=== PATIENT | female | born 1940 | race Caucasian/White ===

== ENCOUNTER → 2018-03-03 09:24 | Outpatient (CLI) | payer MEDICARE, SELFPAY ==
--- NOTE | 2018-03-03 09:31 | US_ITS ---
US transvaginal Ordering Physician: Brunilda Syed MD Patient Age: 78 years: Female HISTORY: ITS.REASON: POST MENOPAUSAL BLEEDING Knee postmenopausal bleeding 3 days TECHNIQUE: Transvaginal pelvic ultrasound COMPARISON :None : FINDINGS : Uterus is retroverted. The uterus is generous in girth & enlarged for this age age patient measuring 7.7 cm x 4.6 cm AP x 5.8 cm wide. Inhomogeneous debris-filled fluid collection is seen at the superior aspect of the endometrium. Appears to have a thin margin/rim This measures up to 2.5 cm sagittal length x 3 nearly cm transverse. &, 2 cm AP. This masslike fluid collection tapers as it extends inferiorly along the endometrial cavity. This abnormality results thickening of the superior endometrium up to nearly. 2 cm. Warrants/requires [employer] consult. This could be an endometrial lesion/neoplasm , or could be degenerating submucosal fibroid, extending down from the superior endometrial cavity.. Possible central necrosis or liquefication catheter for this inhomogeneous fluid like hypoechoic appearance The endometrial stripe tapers to to more normal thickness at lower uterine segment. However superiorly endometrial cavity measures up to 2 cm AP at the level of the lesion described above . Question a few tiny nabothian cyst along cervical canal as well. No fluid in cul-de-sac. The ovaries appear normal in size & appearance. Right ovary 1.5 cm x 1.25 cm x 0.75 cm. Left ovary 1.1 x 0.9 x 1 cm . IMPRESSION: 1. The focal hypoechoic debris-filled fluid collection/mass at the superior aspect of the endometrium-as discussed in text. Warrants/requires [employer]ER consult and follow-up.. 2. Ovaries appear normal bilaterally.
== END ==
PROVIDERS: PCP Family Medicine; Visit Provider Emergency Medicine
DX: N95.0 Postmenopausal bleeding (principal)
CPT/HCPCS: 76830

== ENCOUNTER → 2018-05-16 09:33 | Outpatient (CLI) | payer MEDICARE, SELFPAY ==
--- NOTE | 2018-05-16 09:37 | MM_ITS ---
MM Dig SC mamm implant BI CAD CAD Screening . ORDERING PHYSICIAN: Brunilda Syed MD PATIENT AGE: 78 years COMPARISON: November 2016 bilateral. December 2016 left mammogram and left breast ultrasound. Also May 2012 bilateral mammogram . TECHNIQUE: Janina technique utilized. CC & MLO images were obtained of the breast tissue overlying implant, as well as a second set of images including the breast implant. Mammography is inherently limited due to the implants is a could obscure areas of breast R2 CAD reviewed. FINDINGS: Moderately dense breast pattern bilaterally. Overlying the implants, which can partially obscure portions of the breast Moderately dense breast tissue. Areas of minimal density on one view dissipate on another compatible with fibroglandular tissue RIGHT MAMMOGRAM. No suspicious findings. No new areas of concern. stable appearance with no new findings. Follow-up in one year recommended LEFT MAMMOGRAM: No new suspicious features.. Stable minimal densities and nodularity medial breast similar to previous study. . . We again see some minimal nodularity towards the medial breast but this is unchanged since November 2016 exam and actually was somewhat evident on the May 2012 study. Also the December 2016 ultrasound showed small cyst in this region to account for at least one of these densities with no other suspicious findings otherwise on that prior ultrasound. The fibroglandular tissue at the lateral left breast dissipates on multiple views with no persistent of concern Given the lack of definitive change of the above features, follow-up mammogram not over one year would be adequate. .. --------IMPRESSION: No suspicious nor significant appearing new findings. Left breast minimal nodularity medially appears similar, with no significant change since since 2016. . Bilateral follow-up in one year- should be emphasized and encouraged ( Bilateral breast implants & moderately dense breast tissue, decrease sensitivity of mammography.) BI-RADS Category: 2 Benign Finding(s) RECOMMENDED FOLLOW-UP: 1YR - 1 YEAR FOLLOW-UP (A letter has been sent to the patient regarding results of the study.)
--- NOTE | 2018-05-16 09:38 | XR_ITS ---
XR DEXA axial skeleton HISTORY: ITS.REASON: OSTEOPENIA ORDERING PHYSICIAN: Brunilda Syed MD PATIENT AGE: 78 years COMPARISON: 11/25/2016 FINDINGS: The BMD measured at the left femoral neck is 0.716 g/cm squared with a T score of -2.3. This is considered Osteopenic according to the World Health Organization criteria. Fracture risk is Moderate. Treatment is advised. The L1 L4 density has a T score of -0.5 and has decreased by 1.2%. The mean hip density has decreased 4%. IMPRESSION: Osteopenia with moderate fracture risk. Treatment is advised. Suggest follow-up exam May 2020
== END ==
PROVIDERS: PCP Emergency Medicine; Visit Provider Emergency Medicine
DX: Z12.31 Encounter for screening mammogram for malignant neoplasm of breast (principal); M81.0 Age-related osteoporosis without current pathological fracture
CPT/HCPCS: 77067; 77080

== ENCOUNTER → 2018-09-13 14:39 | Outpatient (CLI) | payer MEDICARE, SELFPAY ==
--- NOTE | 2018-09-13 14:49 | US_ITS ---
US transvaginal HISTORY: ITS.REASON: US T/V- Endometrial Hyperplasia ORDERING PHYSICIAN: Marina Medina MD PATIENT AGE: 78 years Comparison: None FINDINGS: Uterus is 6 x 4 x 4 cm and retroverted. There is some fluid present within the endometrial canal. The adnexa are unremarkable. No cul-de-sac fluid evident. IMPRESSION: Small amount of fluid within the endometrial canal
== END ==
PROVIDERS: PCP Emergency Medicine; Visit Provider Obstetrics & Gynecology
DX: N85.01 Benign endometrial hyperplasia (principal)
CPT/HCPCS: 76830

== ENCOUNTER → 2019-11-16 15:57 | Outpatient (CLI) | payer MEDICARE, SELFPAY ==
[2019-11-16 18:07] LABS: Coronavirus 19 IgG Antibody Positive (Negative); Coronavirus 19 IgM Antibody Negative (Negative)
== END ==
PROVIDERS: Visit Provider Internal Medicine Gastroenterology
DX: Z01.818 Encounter for other preprocedural examination (principal); Z12.11 Encounter for screening for malignant neoplasm of colon
CPT/HCPCS: 36415; 86328

== ENCOUNTER 2019-11-19 11:17 | Day surgery (SDC) | payer MEDICARE, SELFPAY ==
[2019-11-14 10:54] VITALS: BMI 28.2
[2019-11-19] VITALS (7 sets, daily range): BP systolic 96–155; BP diastolic 48–79; PULSE 53–69; RESP 16–18; TEMP 36.6–36.7; O2SAT 97–100
--- NOTE | 2019-11-19 12:57 | HMH.ANESCL ---
[facility] Anesthesia Checklist - Patient Identification Patient Identification: Arm Band, Verbal (Name & ) - Structural Data Admitted From: Home Planned Operative Procedure/s: Colonoscopy Consent for Planned Operative Procedure(s) Verified: Yes Verified Documents: Surgical Consent, History and Physical - NPO Status Verified Time NPO: 00:00 - Chart Verification Results Verified: None - Additional verifications Anesthesia Reactions: No Hx Blood Transfusions: No Blood Transfusion Reaction: No - Airway Assessment C-Spine Mobility Assessed: Yes TMJ Mobility Assessed: Yes Dentition: Good Dentition - Neurological Assessment Level of Consciousness: Awake, Alert, Appropriate, Follows Commands Hx Seizures: No Numbness or tingling in extremities: No - Anesthesia Plan Anesthesia Risk discussed: Yes Anesthesia Plan: Verified ASA Class: II Anesthesia Type: MAC [facility] History I have reviewed the patient's past medical history: Yes Medical History: Reports:: Anxiety, Asthma, Cancer, Hypertension Denies:: Diabetes Mellitus Type 1, Diabetes Mellitus Type 2, Internal Pacemaker, MRSA, Seizures *Have you ever received a pneumonia vaccine?: Yes *Have you received a flu vaccine this season?: No Other Medical History: Reports: Hypothyroidism. Denies: Blood Transfusion Reaction Anesthesia experience/problems:: No prior complications Laterality Cases: Bilateral: Other (Breast augmentation) Other Surgeries: Yes: Dilation and Curettage, Thyroidectomy, Tubal Ligation. No: Pacemaker Amputation: No Fractures: No - *Social History Last grade of school completed: Advanced degree Smoking Status: Never smoker Alcohol Intake: never Substance Use Type: denies use *Occupational Status:: retired Housing: house Household Members: none *Travel in the last 8 weeks: None Family Hx:: Cancer
--- NOTE | 2019-11-19 13:59 | HMH.PROC ---
[facility] Procedure Note Procedure Note:: Colonoscopy Procedure Report: Colonoscopy with cold snare polypectomy Endoscopist: Ben Gallegos II, MD Referring physician: Milan Jefferson MD Date of Procedure: November 19, 2019 Equipment: Olympus 180 variable stiffness pediatric colonoscope Sedation: MAC sedation Indication: Mrs. Loredo is a 79-year-old female who is here for follow-up screening/surveillance colonoscopy. The patient does have a family history of colon cancer and a personal history of colon polyps. Both of her parents had colon cancer. Her mother was age 50 and her father was in his mid 50s. The patient has had 3 prior colonoscopies. The patient's colonoscopy in January 2004 revealed 2 polyps (tubular adenomas x2) which were removed. The patient's colonoscopy in February 2009 revealed 2 diminutive polyps (tubular adenomas x2) which were removed. Her last colonoscopy in 2013 revealed a single polyp (tubular adenoma x1) which was removed. She does get some occasional hemorrhoidal bleeding. She reports no abdominal pain, weight loss or change in her bowel habits. Procedure: Prior to the procedure, a history and physical exam was performed, and patient's medications and allergies were reviewed. The risks, benefits and alternatives of the sedation and procedure were discussed with the patient. All questions were answered and informed consent was obtained. The patient was brought to the procedure room. Patient identification and proposed procedure were verified by the physician and the nurse. The patient was placed in a left lateral decubitus position and the scope was passed under direct vision. Throughout the procedure, the patient's blood pressure, pulse, and oxygen saturations were monitored continuously. The colonoscopy was accomplished without difficulty. The patient tolerated the procedure well. Findings: On digital rectal examination there was normal rectal tone. There were no external hemorrhoids. The colonoscope was introduced through the anal canal to the rectum and advanced to the cecum. The ileocecal valve and appendiceal orifice were identified. The scope was advanced a short distance into the ileum which appeared grossly normal. The scope was then withdrawn into the colon. The cecum, ascending and transverse colon and mucosa were grossly normal. There was a diminutive 3 mm polyp in the transverse colon removed via cold snare polypectomy. There were scattered diverticuli throughout the descending and sigmoid colon (LEFT colon). The rectum itself was normal. Upon retroflexion within the rectum there were grade 2 internal hemorrhoids. The preparation was excellent throughout with [place] Preparation Score of 9. The cecal time was 12 minutes. Impression: 1. Diminutive transverse colon polyp 2. Left-sided diverticulosis 3. Grade 2 internal hemorrhoids Plan: I will follow-up the polyp histology and I am not convinced that the patient will require further preventive/surveillance colonoscopy. I will discuss the findings with the patient and family. I would encourage continuation of bulk fiber supplementation with Metamucil daily.
== END 2019-11-19 14:54 | disposition home or self-care (01) ==
LOC: OUTP 11:19
PROVIDERS: PCP Family Medicine; Visit Provider Internal Medicine Gastroenterology
PROC: 0DJD8ZZ Inspection of Lower Intestinal Tract, Via Natural or Artificial Opening Endoscopic (ICD-10-PCS; CPT 45378; principal; 2019-11-19 12:30)
DX: Z12.11 Encounter for screening for malignant neoplasm of colon (principal); Z80.0 Family history of malignant neoplasm of digestive organs; Z86.010 Personal history of colon polyps; K63.5 Polyp of colon; K57.30 Diverticulosis of large intestine without perforation or abscess without bleeding; K64.1 Second degree hemorrhoids; J45.909 Unspecified asthma, uncomplicated; F41.9 Anxiety disorder, unspecified; I10 Essential (primary) hypertension; E03.9 Hypothyroidism, unspecified; Z85.9 Personal history of malignant neoplasm, unspecified; Z79.899 Other long term (current) drug therapy
CPT/HCPCS: 45385; 88305

== ENCOUNTER → 2020-04-10 10:44 | Outpatient (POV) | payer MEDICARE, SELFPAY | PROVIDERS: Visit Provider Audiologist | DX: Z00.00 Encounter for general adult medical examination without abnormal findings (principal) ==

== ENCOUNTER 2020-04-25 11:06 | Emergency (ER) | payer MEDICARE, SELFPAY ==
[2020-04-25 11:06] VITALS: BP 169/92; PULSE 60; RESP 18; TEMP 37.3; O2SAT 95; BMI 28.4
--- NOTE | 2020-04-25 11:29 | XR_ITS ---
PROCEDURE: XR CHEST 2V CLINICAL HISTORY: soa COMPARISON: No exams were available for comparison FINDINGS: The cardiomediastinal silhouette and pulmonary vascularity are within normal limits. The lungs are clear without infiltrates, suspicious nodules, or pleural effusions. There is mild diffuse dextroscoliotic curvature of the mid and upper thoracic spine. There are degenerate changes in both shoulders with lateral downsloping acromion process of both shoulders suggesting predisposition to impingement syndrome. There is mild and likely non recent compression of 2 midthoracic vertebrae. No acute bony abnormalities. IMPRESSION: No acute findings. Dictated by: Dr. Roger Candelario MD 04/25/2020 11:53 Dr. Roger Candelario MD in [place] 04/25/2020 11:53
--- NOTE | 2020-04-25 11:32 | ECG_ITS ---
APPROVED REPORT Exam: Resting ECG HR:62 bpm ECG Measurements Heart Rate 62 AXES NC 146 P 64 QRSd 94 QRS -31 QT 412 T 46 QTc 418 Conclusion Normal sinus rhythm Left axis deviation Abnormal ECG Electronically signed by : Shankar Au, 04/25/2020 20:09:49
[2020-04-25 11:36] VITALS: BP 170/90; PULSE 76; RESP 18; O2SAT 96
--- NOTE | 2020-04-25 11:43 | HMH.EDGENADL ---
ED Disposition Clinical Impression: Essential hypertension Disposition: Home, Self-Care Condition on Discharge: Good Instructions: DI for High Blood Pressure Additional Instructions: Continue your current blood pressure medication. Continue to monitor your blood pressure at home, check it daily and record results. Follow-up with Dr. Jefferson in the office. Referrals: Dimas Jefferson MD [Primary Care Provider] - - Critical Care Critical Care Time: No Attestation: On 04/25/20, the high probability of a clinically significant, sudden or life threatening deterioration of the following system(s) required my full and direct attention, intervention and personal management. The time I documented below is in addition to time spent performing reported procedures but includes the following listed in this critical care notation. Medical Decision Making - Jakub Inquiry Pt receiving controlled substance: No Vital Signs: 04/25/20 11:06 04/25/20 11:36 04/25/20 12:06 Temperature 99.1 F Temperature Source Oral Pulse Rate [Left Radial] 60 76 63 Respiratory Rate 18 18 18 Blood Pressure [Right Arm] 169/92 H 170/90 H 192/88 H Blood Pressure Mean [Right Arm] 117 116 122 Blood Pressure Source [Right Arm] Automatic Cuff Automatic Cuff Automatic Cuff Blood Pressure Position [Right Arm] Sitting Supine Supine 02 Sat by Pulse Oximetry 95 96 98 Oxygen Delivery Method Room Air Room Air Room Air 04/25/20 12:30 Temperature Temperature Source Pulse Rate [Left Radial] 67 Respiratory Rate 18 Blood Pressure [Right Arm] 179/87 H Blood Pressure Mean [Right Arm] 117 Blood Pressure Source [Right Arm] Automatic Cuff Blood Pressure Position [Right Arm] Sitting 02 Sat by Pulse Oximetry 95 Oxygen Delivery Method Room Air - Lab Data Lab Results 04/25/20 12:01: WBC 6.8, RBC 4.49, Hgb 13.8, Hct 42.7, MCV 95.1, MCH 30.6, MCHC 32.2, RDW 12.4, Plt Count 334, MPV 7.2 L, Neut % (Auto) 62.0, Lymph % (Auto) 32.0, [place] % (Auto) 3.8, Eos % (Auto) 1.7, Baso % (Auto) 0.5, Neut # (Auto) 4.2, Lymph # (Auto) 2.2, [place] # (Auto) 0.3, Eos # (Auto) 0.1, Baso # (Auto) 0.0 04/25/20 12:01: Sodium 139, Potassium 4.0, Chloride 106, Carbon Dioxide 29, Anion Gap 8.0, BUN 14, Creatinine 0.80, Estimated Creat Clear 57, Estimated GFR 69, Est GFR ( Amer) 84, Glucose 100, Calcium 9.8, Total Bilirubin 0.8, AST 33, ALT 21, Alkaline Phosphatase 82, Total Protein 7.8, Albumin 4.4, Globulin 3.4 H, Albumin/Globulin Ratio 1.3, TSH 1.66 04/25/20 12:29: Urine Color Yellow, Urine Appearance Clear, Urine pH 6.5, Ur Specific [place] 1.020, Urine Protein Negative, Urine Glucose (UA) Negative, Urine Ketones Negative, Urine Blood Negative, Urine Nitrate Negative, Urine Bilirubin Negative, Urine Urobilinogen 0.2, Ur Leukocyte Esterase Negative Result diagrams: 04/25/20 12:01 04/25/20 12:01 Orders (Tests/Meds): ORDERS Category Date Time Status Urinalysis and Microscopic Stat Lab 04/25/20 12:29 Results - Radiology Data #1 Image(s): Chest Image Reviewed: Yes I have reviewed radiologist's interpretation PROCEDURE: XR CHEST 2V CLINICAL HISTORY: soa COMPARISON: No exams were available for comparison FINDINGS: The cardiomediastinal silhouette and pulmonary vascularity are within normal limits. The lungs are clear without infiltrates, suspicious nodules, or pleural effusions. There is mild diffuse dextroscoliotic curvature of the mid and upper thoracic spine. There are degenerate changes in both shoulders with lateral downsloping acromion process of both shoulders suggesting predisposition to impingement syndrome. There is mild and likely non recent compression of 2 midthoracic vertebrae. No acute bony abnormalities. IMPRESSION: No acute findings. Dictated by: Dr. Roger Candelario MD 04/25/2020 11:53 Dr. Roger Candelario MD in [place] 04/25/2020 11:53 - ECG Data Tracing #1 EKG interpreted by Hugo Berrios MD: [place]
[2020-04-25 12:06] VITALS: BP 192/88; PULSE 63; RESP 18; O2SAT 98
[2020-04-25 12:30] VITALS: BP 179/87; PULSE 67; RESP 18; O2SAT 95
[2020-04-25 12:31] LABS: Chloride 106 mmol/L (98-107); Sodium 139 mmol/L (136-145)
[2020-04-25 12:33] LABS: Blood Urea Nitrogen 14 mg/dl (7-17); Creatinine Clearance Estimated 57 mL/min (50-200); Estimated Glomerular Filt Rate 69 ml/min (>60); GFR (African American) 84 ML/MIN (>60)
[2020-04-25 12:34] LABS: Alanine Aminotransferase 21 U/L (12-78); Albumin Level 4.4 g/dl (3.5-5.0); Albumin/Globulin Ratio 1.3 (1.1-1.8); Alkaline Phosphatase 82 U/L (38-126); Aspartate Amino Transferase 33 U/L (14-36); Bilirubin,Total 0.8 mg/dl (0.2-1.3); Carbon Dioxide 29 mmol/L (22.0-30.0); Globulin 3.4 g/dL (1.3-3.2); Total Protein,Serum 7.8 g/dl (6.3-8.2)
[2020-04-25 12:35] LABS: Calcium 9.8 mg/dl (8.4-10.2); Glucose 100 mg/dl (74-100)
[2020-04-25 12:38] LABS: Microscopic, Urine URINE MICROSCOPIC (MICROSCOPIC)
[2020-04-25 12:40] LABS: Appearance,Urine CLEAR (Clear); Bilirubin,Urine Negative (Negative); Blood, Urine Negative (Negative); Color,Urine YELLOW (Yellow); Glucose,Urine (UA) Negative (Negative); Ketones,Urine Negative (Negative); Leukocyte Esterase,Urine Negative (Negative); Nitrate,Urine Negative (Negative); PH,Urine 6.5 (5.0-8.5); Protein,Urine Negative (Negative); Urobilinogen,Urine 0.2 EU/dl (0.2)
[2020-04-25 12:49] LABS: Basophils % 0.5 % (0.1-2.0); Eosinophils # 0.1 K/mm3 (0.0-0.4); Eosinophils % 1.7 % (0.1-12.0); Hematocrit 42.7 % (37.0-47.0); Hemoglobin 13.8 g/dL (12.2-16.2); Lymphocytes # 2.2 K/mm3 (0.7-4.5); Mean Corpuscular HGB Conc 32.2 g/dL (31.8-35.4); Mean Corpuscular Hemoglobin 30.6 pg (27.0-31.2); Mean Corpuscular Volume 95.1 fl (81-99); Mean Platelet Volume 7.2 fl (7.4-10.4); Monocytes # 0.3 K/mm3 (0.1-1.0); Monocytes % 3.8 % (1.7-9.3); Neutrophils # 4.2 K/mm3 (1.8-7.8); Platelet Count 334 K/mm3 (142-424); Red Blood Count 4.49 M/mm3 (4.20-5.40); Red Cell Distribution Width 12.4 % (11.5-17.5); White Blood Count 6.8 K/mm3 (4.8-10.8)
[2020-04-25 13:00] VITALS: BP 174/90; PULSE 67; RESP 19; O2SAT 97
[2020-04-25 13:07] LABS: Thyroid Stimulating Hormone 1.66 uIU/mL (0.465-4.68)
[2020-04-25 13:20] VITALS: BP 184/92; PULSE 63; RESP 20; TEMP 37.3; O2SAT 98
[2020-04-25 13:24] LABS: Bacteria,Urine 1+ /lpf
== END 2020-04-25 13:25 | disposition home or self-care (01) ==
PROVIDERS: Emergency Provider Emergency Medicine; PCP Family Medicine
DX: I16.0 Hypertensive urgency (principal); F41.9 Anxiety disorder, unspecified; E03.9 Hypothyroidism, unspecified
CPT/HCPCS: 71046; 80053; 81001; 84443; 85025; 93005; 99284

== ENCOUNTER → 2021-05-12 07:43 | Outpatient (CLI) | payer MEDICARE, SELFPAY ==
--- NOTE | 2021-05-12 07:48 | MM_ITS ---
PROCEDURE INFORMATION: Exam: MG Bilateral Screening 3D Mammography Exam date and time: 05/12/2021 7:48 AM Age: 81 years old Clinical indication: Encounter for screening mammogram for malignant neoplasm of breast. No family history of breast cancer. TECHNIQUE: Imaging protocol: Bilateral Screening tomosynthesis and 2D mammography including computer-aided detection (CAD) when performed. COMPARISON: 1. MG SCIMPBI MM Dig SC mamm implant BI CAD 05/16/2018 10:26 AM 2. MG DMDXUAVL DIG MAMM-DX UNI A/VWS-LT W/CAD 12/24/2016 1:11 PM 3. MG DMSI DIG MAMM-SCREEN IMPLANT W/CAD 11/25/2016 10:12 AM 4. MG DMID DIG MAMM-IMPLANT DIAGNOSTIC 05/11/2012 9:58 AM FINDINGS: MAMMOGRAPHY: Breast composition: The breast tissue is heterogeneously dense, which may obscure small masses. Mass: No suspicious mass. Architectural distortion: None. Calcifications: No suspicious calcifications. Asymmetric density: None. Skin thickening: None. Axillary adenopathy: None. Implants: Prepectoral silicone implants bilaterally, contours are unremarkable. Capsular calcifications noted on the left. IMPRESSION: No mammographic evidence of malignancy. Annual screening is recommended unless otherwise clinically indicated. ASSESSMENT: BI-RADS Category 1: Negative
--- NOTE | 2021-05-12 07:48 | XR_ITS ---
FINAL REPORT TECHNIQUE: Bone densitometry calculations of the lumbar spine and left hip were obtained. CLINICAL HISTORY: post menopausal FINDINGS: Using L1-4, the bone mineral density of the spine is 1.110 g/cm2, corresponding to T-score of 0.6. These levels are likely falsely elevated secondary to hypertrophic changes. Using the left hip, the bone mineral density of the femoral neck is 0.640 g/cm2, corresponding to a T-score of -2.5. IMPRESSION: Osteoporosis: Lowest T-score is at or below -2.5. This patient's T-score meets the World Health Organization criteria for osteoporosis. Reviewed, Interpreted and Dictated by Néstor Ortiz III, MD Transcribed by Rosita Marin Authenticated by Néstor Ortiz III, MD on 05/12/2021 12:48:58 PM [facility]
== END ==
PROVIDERS: PCP Family Medicine; Visit Provider Family Medicine
DX: Z12.31 Encounter for screening mammogram for malignant neoplasm of breast (principal); Z78.0 Asymptomatic menopausal state; M81.0 Age-related osteoporosis without current pathological fracture
CPT/HCPCS: 77063; 77067; 77080

== ENCOUNTER → 2022-05-14 08:13 | Outpatient (CLI) | payer MEDICARE, SELFPAY ==
--- NOTE | 2022-05-14 08:21 | MM_ITS ---
PROCEDURE INFORMATION: Exam: MG Bilateral Screening 3D Mammography Exam date and time: 05/14/2022 8:17 AM Age: 82 years old Clinical indication: Screening examination TECHNIQUE: Imaging protocol: Bilateral Screening tomosynthesis and 2D mammography including computer-aided detection (CAD) when performed. COMPARISON: 1. MG MM DIG SC MAMM IMPLANT BI CAD 05/12/2021 7:42 AM 2. MG SCIMPBI MM Dig SC mamm implant BI CAD 05/16/2018 10:26 AM FINDINGS: MAMMOGRAPHY: Breast composition: The breasts are heterogeneously dense, which may obscure small masses. Mass: None. Architectural distortion: None. Calcifications: No suspicious calcifications. Asymmetric density: None. Skin thickening: None. Axillary adenopathy: None. Implants: Prepectoral silicone breast implants are present. The contours are smooth. IMPRESSION: No mammographic evidence of malignancy. Annual screening is recommended unless otherwise clinically indicated. ASSESSMENT: BI-RADS Category 1: Negative
--- NOTE | 2022-05-14 08:22 | XR_ITS ---
FINAL REPORT TECHNIQUE: Bone densitometry calculations of the lumbar spine and left hip were obtained. CLINICAL HISTORY: . post menopausal screening FINDINGS: DEXA BONE DENSITY AXIAL SKELETON Using L1-4, the bone mineral density of the spine is 1.080 g/cm2, corresponding to T-score of 0.3. Note these values may be falsely elevated secondary to hypertrophic changes. Using the left hip, the bone mineral density of the total hip is 0.637 g/cm2, corresponding to a T-score of -2.5. NOTE: T-score: Standard deviation compared with peak bone mass of young adult mean. *Following the recommendations of the International Society of Bone Densitometry, classification of hip BMD is based on the lower of two T-scores; total hip or femoral neck. IMPRESSION: Osteoporosis: Lowest T-score is at or below -2.5. This patient's T-score meets the World Health Organization criteria for osteoporosis. FRAX not reported because: Some T-score for Spine Total or hip Total or femoral neck at or below-2.5. Reviewed, Interpreted and Dictated by Néstor Ortiz III, MD Transcribed by Rosita Marin Authenticated and . [facility]
== END ==
PROVIDERS: PCP Family Medicine; Visit Provider Family Medicine
DX: Z12.31 Encounter for screening mammogram for malignant neoplasm of breast (principal); M81.0 Age-related osteoporosis without current pathological fracture
CPT/HCPCS: 77063; 77067; 77080